=== PATIENT | male | born 1935 | race Caucasian/White ===

== ENCOUNTER → 2017-04-21 | Outpatient (CLI) | payer MEDICARE ==
[~2017-04-21] MED LIST: ASPI81TA5 PO; CARV3.12 PO; DOCU2.5C PO; GABA300C5 PO; GLUCOCIL PO; LOSA50TA PO; OMEG100010 PO; OXYC1TAB36 PO; REDCAP2 PO; SYMB160A INH
--- NOTE | 2017-04-21 11:45 | RADRPT ---
EXAM DATE/TIME: 04/21/2017 11:36 [facility] COMPARISON: No previous studies available for comparison. INDICATIONS : Pre op lobectomy. Evaluate for pneumothorax, pneumonia, or communicable diseases. MEDICAL HISTORY : Diabetes mellitus type II. Chronic obstructive pulmonary disease. SURGICAL HISTORY : Triple a repair, Left knee replacement. ENCOUNTER: Initial ACUITY: 1 day PAIN SCORE: 0/10 LOCATION: Bilateral chest FINDINGS: Minimal diffuse interstitial prominence. Minimal linear parenchymal opacities in the left lung base c onsistent with atelectasis. Cardiomediastinal contours are within normal limits. Bony thorax is intac t. CONCLUSION: 1. Minimal left lung base atelectasis. 2. Otherwise, no acute cardiopulmonary disease. Oh Luna MD on April 21, 2017 at 11:42 Board Certified Radiologist. This report was verified electronically.
[2017-04-21 12:20] LABS: HEMATOCRIT 43.6 % (39.0-51.0); MEAN CELL VOLUME 92.7 FL (80.0-100.0); MEAN CORPUSCULAR HGB CONC 33.4 % (32.0-36.0); PLATELET COUNT 155 TH/MM3 (150-450); RED CELL DISTRIBUTION WIDTH 15.7 % (11.6-17.2); REVIEW FLAG FINAL; WHITE BLOOD COUNT 5.4 TH/MM3 (4.0-11.0)
[2017-04-21 12:24] LABS: BLOOD, URINE NEG (NEG); GLUCOSE,URINE NEG (NEG); KETONE, URINE NEG (NEG); NITRITE,URINE NEG (NEG); URINE COLOR YELLOW (YELLW/STRAW)
[2017-04-21 12:25] LABS: COMMENT (UR) CULT NOT INDICATED; CULTURE IF INDICATED CULT NOT INDICATED
[2017-04-21 12:33] LABS: APTT (PATIENT) 24.5 SEC (24.3-30.1)
[2017-04-21 12:47] LABS: BICARBONATE 28.8 MEQ/L (21.0-32.0); POTASSIUM 4.9 MEQ/L (3.5-5.1)
--- NOTE | 2017-04-22 14:40 | EKG ---
Date Performed: 04/21/2017 Time Performed: 11:01:26 PTAGE: 82 years EKG: Sinus rhythm WITH SINUS ARRHYTHMIA NORMAL ECG NO PREVIOUS TRACING DOCTOR: James Green Interpretating Date/Time 04/22/2017 14:38:59
== END ==
LOC: CPRE 10:41
PROVIDERS: ATTEND Thoracic Surgery (Cardiothoracic Vascular Surgery)
DX: Z01.810 Encounter for preprocedural cardiovascular examination (principal); Z01.811 Encounter for preprocedural respiratory examination; Z01.812 Encounter for preprocedural laboratory examination; R91.1 Solitary pulmonary nodule
CPT/HCPCS: 36415; 71020; 80048; 81001; 85027; 85610; 85730; 93005

== ENCOUNTER 2017-04-28 08:30 | Inpatient (IN) | payer MEDICARE ==
[~2017-04-28] VITALS: Ht 175.3 cm; Wt 79.2 kg
[~2017-04-28 08:30] MED LIST changes: -DOCU2.5C PO; -GLUCOCIL PO; -OXYC1TAB36 PO
[2017-05-05] MEDS ORDERED: METOPROLOL TARTRATE 25 MG TAB PO PRN (06:00)
[2017-05-05] MEDS ORDERED: CHLORHEXIDINE GLUCONATE 2 % 1 PACK (2 CLOTHS) TOPICAL PRN (06:00)
[2017-05-05] MEDS ORDERED: INSULIN HUMAN REGULAR 1,000 UNITS/10 ML VIAL SQ PRN (06:00)
[2017-05-05] MEDS ORDERED: SODIUM CHLORID 0.9% 500 ML IV PRN (06:00)
[2017-05-05] MEDS ORDERED: LACTATED RINGER'S 1000 ML IV PRN (06:00)
[2017-05-05] MEDS ORDERED: POVIDONE IODINE 5% (ANTISEPSIS KIT) 4 APPLICATIONS EACH NARE PRN (06:00)
[2017-05-05] MEDS ORDERED: BUPIVACAINE LIPOSO PF 1.3% INJ 20 ML, DEXAMETHASONE INJ 4 MG, MORPHINE INJ 8 MG in SODI... IRRIGATION ONE (07:15)
[2017-05-05] MEDS ORDERED: ceFAZolin 2 GM PREMIX 50 ML ONE (07:31)
[2017-05-05] MEDS ORDERED: ROCURONIUM INJ 50 MG/5 ML SYRINGE IV PUSH ONE ×2 (11:40→11:53)
[2017-05-05] MEDS ORDERED: LIDOCAINE HCL 1% PF 5 ML AMPULE OTHER ONE (11:53)
[2017-05-05] MEDS ORDERED: ePHEDrine/NS 25 MG/5 ML SYR IV ONE (11:53)
[2017-05-05] MEDS ORDERED: PHENYLEPHRINE HCL 10 MG/ML VIAL IV ONE (11:53)
[2017-05-05] MEDS ORDERED: LACTATED RINGER'S 1000 ML INJ 2,000 ML IV ONE (11:53)
[2017-05-05] MEDS ORDERED: ONDANSETRON HCL 4 MG/2 ML VIAL IV PUSH ONE (11:53)
[2017-05-05] MEDS ORDERED: GLYCOPYRROLATE 1 MG/5 ML SYRINGE IV PUSH ONE (11:53)
[2017-05-05] MEDS ORDERED: LABETALOL HCL 100 MG/20 ML VIAL IV ONE (11:53)
[2017-05-05] MEDS ORDERED: NEOSTIGMINE 3 MG/3 ML SYR IV ONE (11:53)
[2017-05-05] MEDS ORDERED: PROPOFOL 200 MG/20 ML AMP IV ONE (11:53)
[2017-05-05] MEDS ORDERED: PHENYLEPH/NS 1000 MCG/10 ML SYR IV ONE (11:53)
[2017-05-05] MEDS ORDERED: NORMOSOL R INJ 1,000 ML IV ONE (11:53)
--- NOTE | 2017-05-05 12:27 | PD.OP ---
cc: Canelo Contreras MD Operative Report Date of Surgery: May 05, 2017 Preoperative Diagnosis: Postoperative Diagnosis: Procedure: 1. Left Posterolateral Muscle Sparing Thoracotomy 2. Left Upper Lobectomy 3. Mediastinal Lymph Node Dissection 4. Intercostal Nerve Block Surgeon: Canelo Contreras Lawyer Criminal(s): Peyman Lockett Operation and Findings: PREOPERATIVE DIAGNOSIS 1. Left Upper Lobe Lung Mass 2. COPD 3. CAD POSTOPERATIVE DIAGNOSIS 1. Left Upper Lobe Lung Cancer 2. COPD 3. CAD PROCEDURES 1. Left Posterolateral Muscle Sparing Thoracotomy 2. Left Upper Lobectomy 3. Mediastinal Lymph Node Dissection 4. Intercostal Nerve Block SURGEON Canelo Contreras MD SAND BOBBER YAMILE Camara ANESTHESIA General double-lumen endotracheal. CAR SEAT UPHOLSTERER YULI Waddell MD DRAINS [address] COUNTS Needle, sponge, and instrument counts were correct. COMPLICATIONS None. INDICATION FOR PROCEDURE The patient is a 82 yo gentleman with HARMEET PET positive mass, presenting for surgical resection of above pathology. DESCRIPTION OF PROCEDURE The patient was brought to the operating suite and placed in supine position. Following satisfactory induction of general double-lumen endotracheal anesthesia , the patient was placed in the right lateral decubitus position. The left chest and surrounding area was then prepped and draped in the usual sterile fashion. A standard muscle-sparing posterolateral thoracotomy was performed and the serratus anterior muscle spared. The pleural space was entered. Exploration of the chest revealed a linear mass in the left upper lobe. Wedge resection of the mass was performed and the specimen sent for histological analysis. Frozen section was consistent with NSCLC likely Adenocarcinoma. Plans were made to proceed with a formal lobectomy. The inferior pulmonary ligament was divided. The pulmonary arterial supply to the upper lobe was identified, dissected free and divided as was the pulmonary venous supply. The bronchus was then dissected free, clamped and the remaining lung was insufflated without any difficulty. Lymph node dissections of level 5, 6, 7, 10 and 11 were performed along with the course of this removal. Some of these were retained with the specimen. Specimen was removed from the chest. Of note, the lung was very friable. The staple line and the hilum was sprayed with Evicel. At this point the closure was undertaken. A 32-Surinamese chest tube was placed. Intercostal nerve block was performed at the level of the incision and 3 rib spaces above and below using Exparel with Decadron solution. The pericostal space was approximated with interrupted #1 Vicryl sutures in a pericostal fashion. The serratus fascia and Latissimus dorsi were closed with running 0-Vicryl and the remaining wounds closed with 3-0, and 4-0 Monocryl. The patient tolerated the procedure well and postoperatively went to the PACU in stable condition. Canelo Contreras MD May 05, 2017 12:27
[2017-05-05] MEDS ORDERED: SODIUM CHLORIDE 0.9% FLUSH 5 ML FLUSH IV FLUSH PRN (12:30)
[2017-05-05] MEDS ORDERED: ONDANSETRON HCL 4 MG/2 ML VIAL IV PUSH PRN (12:30)
[2017-05-05] MEDS ORDERED: Post-op Orders (for Pharmacy) MISC OTHER ONE (12:30)
[2017-05-05] MEDS ORDERED: RESP: ALBUTEROL 2.5 MG/3 ML NEB (PRN) NEB (12:30)
[2017-05-05] MEDS ORDERED: *morphine SULFATE 8 MG/ML PERIprocedure ONLY ONE ×2 (13:28→13:51)
--- NOTE | 2017-05-05 13:52 | RADRPT ---
EXAM DATE/TIME: 05/05/2017 13:04 [facility] COMPARISON: CHEST PA & LAT, April 21, 2017, 11:36. INDICATIONS : Status post Thoracotomy. MEDICAL HISTORY : None. SURGICAL HISTORY : None. ENCOUNTER: Initial ACUITY: 1 day PAIN SCORE: Non-responsive. LOCATION: Bilateral chest FINDINGS: There is a left-sided chest tube in place in good position. No definite pneumothorax. Mild atelectasi s in the left lung base. Otherwise the lungs are grossly clear. The heart size is mildly enlarged but stable compared to the prior exam. No pleural effusions. The bony structures are grossly intact. The re is some mild subcutaneous emphysema along the left chest wall. CONCLUSION: 1. Left chest tube in place. 2. No definite pneumothorax. Cristi Durán MD on May 05, 2017 at 13:50 Board Certified Radiologist. This report was verified electronically.
[2017-05-05] MEDS: RESP: ALBUTEROL 2.5 MG/3 ML NEB (SCH) NEB (16:00)
[2017-05-05] MEDS: ACETAMINOPHEN 1000 MG/100 ML 100 ML IV SCH ×2 (16:00→20:59)
[2017-05-05] MEDS: KETOROLAC TROMETHAMINE 30 MG/ML (IVP) VIAL IV PUSH SCH ×2 (16:00→21:00)
[2017-05-05] MEDS ORDERED: *ENALAPRILAT 1.25 MG/ML VIAL PERIprocedural Use ONLY ONE (17:18)
[2017-05-05 18:54] VITALS: BP 147/72; PULSE 83; RESP 18; TEMP 98.4; O2SAT 94
[2017-05-05 19:00] VITALS: BP 133/64; PULSE 80; PULSE 84; TEMP 98.5; O2SAT 96
[2017-05-05 20:00] VITALS: PULSE 80
[2017-05-05] MEDS ORDERED: diphenhydrAMINE HCL 25 MG CAP PO ONE (20:00)
[2017-05-05] MEDS: SODIUM CHLORIDE 0.9% FLUSH 5 ML FLUSH IV FLUSH SCH (20:59)
[2017-05-05] MEDS: PANTOPRAZOLE SOD 40 MG DELAYED RELEASE TAB PO SCH (20:59)
[2017-05-05] MEDS: DOCUSATE CALCIUM 240 MG CAP PO SCH (20:59)
[2017-05-05] MEDS: CARVEDILOL 3.125 MG TAB PO SCH (20:59)
[2017-05-05 21:00] VITALS: PULSE 78
[2017-05-05] MEDS: BUDESONIDE-FORMOTEROL 160/4.5 MCG INHALER INH SCH (21:00)
[2017-05-05 22:00] VITALS: PULSE 74
[2017-05-05 23:00] VITALS: BP 144/65; PULSE 75; PULSE 84; TEMP 97.6; O2SAT 99
[2017-05-06] VITALS (27 sets, daily range): BP systolic 148–186; BP diastolic 63–84; PULSE 62–82; RESP 20; TEMP 97.8–98.6; O2SAT 96–98
[2017-05-06] MEDS: RESP: ALBUTEROL 2.5 MG/3 ML NEB (SCH) NEB ×5 (00:11→20:31)
[2017-05-06] MEDS: ACETAMINOPHEN 1000 MG/100 ML 100 ML IV SCH ×2 (03:52→09:04)
[2017-05-06] MEDS: KETOROLAC TROMETHAMINE 30 MG/ML (IVP) VIAL IV PUSH SCH ×2 (03:52→09:04)
[2017-05-06 05:17] LABS: AUTOMATED NEUTROPHIL # 7.8 TH/MM3 (1.8-7.7); BASOPHIL % 0.3 % (0.0-2.0); EOSINOPHIL # 0.1 TH/MM3 (0-0.4); EOSINOPHIL % 0.6 % (0.0-4.0); HEMATOCRIT 37.9 % (39.0-51.0); HEMO FLAGS DIFF FINAL; LYMPH % 13.7 % (9.0-44.0); LYMPHOCYTE # 1.3 TH/MM3 (1.0-4.8); MEAN CELL VOLUME 92.1 FL (80.0-100.0); MEAN CORPUSCULAR HEMOGLOBIN 31.1 PG (27.0-34.0); MEAN CORPUSCULAR HGB CONC 33.8 % (32.0-36.0); MONO % 6.3 % (0.0-8.0); NEUT % 79.1 % (16.0-70.0); PLATELET COUNT 121 TH/MM3 (150-450); RED BLOOD COUNT 4.12 MIL/MM3 (4.50-5.90); RED CELL DISTRIBUTION WIDTH 15.3 % (11.6-17.2); WHITE BLOOD COUNT 9.8 TH/MM3 (4.0-11.0)
[2017-05-06 05:37] LABS: BICARBONATE 22.5 MEQ/L (21.0-32.0); POTASSIUM 3.9 MEQ/L (3.5-5.1)
[2017-05-06] MEDS: SODIUM CHLORIDE 0.9% FLUSH 5 ML FLUSH IV FLUSH SCH ×2 (09:00→20:35)
[2017-05-06] MEDS ORDERED: FATTY ACIDS PO SCH (09:00)
[2017-05-06] MEDS ORDERED: OMEGA PO SCH (09:00)
[2017-05-06] MEDS: GABAPENTIN 300 MG CAP PO SCH (09:04)
[2017-05-06] MEDS: BUDESONIDE-FORMOTEROL 160/4.5 MCG INHALER INH SCH ×2 (09:04→20:35)
[2017-05-06] MEDS: LOSARTAN 50 MG TAB PO SCH (09:05)
[2017-05-06] MEDS: ASPIRIN EC 81 MG TABEC PO SCH (09:05)
[2017-05-06] MEDS: CARVEDILOL 3.125 MG TAB PO SCH ×2 (09:05→20:34)
[2017-05-06] MEDS: ACETAMINOPHEN/HYDROcodone 325 MG/5 MG TAB PO PRN ×3 (15:59→20:34)
--- NOTE | 2017-05-06 17:22 | PD.CAR.PN ---
CVT Progress Note Subjective/Hospital Course: 82/ male hx of left upper lobe lung cancer / 10x8 spiculated mass / elective surgery PMH: COPD, DM, HTN, CAD/ stent surgery : Left Posterolateral Muscle Sparing Thoracotomy, Left Upper Lobectomy , Mediastinal Lymph Node Dissection 05/05 05/06 on nasal cannula await path pulm toileting OOB/ ambulate chest tube + air leak 140cc/ 12 hr s Objective: GENERAL: SKIN: Warm and dry. dressing left upper chest wall HEAD: Normocephalic. EYES: No scleral icterus. No injection or drainage. NECK: Supple, trachea midline. No JVD or lymphadenopathy. CARDIOVASCULAR: Regular rate and rhythm without murmurs, gallops, or rubs. RESPIRATORY: Breath sounds equal bilaterally. No accessory muscle use. chest tube to water seal/ + 3 air leak GASTROINTESTINAL: Abdomen soft, non-tender, nondistended. MUSCULOSKELETAL: No cyanosis, or edema. BACK: Nontender without obvious deformity. No CVA tenderness. Vital Signs Date Time Temp Pulse Resp B/P (MAP) Pulse Ox O2 Delivery O2 Flow Rate FiO2 05/06/17 16:00 78 05/06/17 15:49 98.6 68 20 148/68 (94) 98 05/06/17 15:00 64 05/06/17 14:00 76 05/06/17 13:00 72 05/06/17 12:00 70 05/06/17 11:30 98.5 68 20 158/78 (104) 98 05/06/17 11:00 68 05/06/17 10:00 72 05/06/17 09:00 68 05/06/17 08:30 162/82 (108) 05/06/17 08:00 74 05/06/17 08:00 98.3 74 179/84 (115) 96 05/06/17 07:00 65 05/06/17 06:03 68 05/06/17 05:53 64 05/06/17 04:24 66 05/06/17 03:00 82 05/06/17 03:00 97.8 70 153/63 (93) 96 05/06/17 02:01 70 05/06/17 01:00 68 05/06/17 00:00 68 05/05/17 23:00 97.6 75 144/65 (91) 99 05/05/17 23:00 84 05/05/17 22:00 74 05/05/17 21:00 78 05/05/17 20:00 80 05/05/17 19:00 84 05/05/17 19:00 98.5 80 133/64 (87) 96 05/05/17 18:54 98.4 83 18 147/72 (97) 94 05/05/17 18:00 97.8 80 16 128/73 (91) 96 Nasal Cannula 3 05/05/17 17:30 80 16 175/79 (111) 96 Nasal Cannula 3 Result Diagram: 05/06/1745005/06/17450 Telemetry: NSR (1) COPD (chronic obstructive pulmonary disease) Plan: nebs, ezpap wean 02 (2) Coronary artery disease Plan: SA, statin , home meds (3) Hypertension Plan: controlled (4) Diabetes mellitus Plan: insulin sliding scale, diabetic diet (5) Primary cancer of left upper lobe of lung (6) Left Posterolateral Muscle Sparing Thoracotomy, Left Upper Lobectomy Plan: pain control, await path f/u CXR in am + air leak Jewell Jennings May 06, 2017 17:22
--- NOTE | 2017-05-06 17:25 | HHI.FF ---
Face to Face Verification Diagnosis: (1) COPD (chronic obstructive pulmonary disease) (2) Coronary artery disease (3) Diabetes mellitus (4) Hypertension (5) Primary cancer of left upper lobe of lung (6) Left Posterolateral Muscle Sparing Thoracotomy, Left Upper Lobectomy Home Health Nursing Order: Signs/symptoms of disease process Medication education-adverse effect Wound care and dressing changes Nursing assessment with vital signs Instructions: Thoracic Surgery patients Mandatory frequency Assess and evaluation, 2-3 x a week for one week Initial visit 1. Review post chest surgery instructions chest precautions, Activity, Elastic hose, Incision care, Driving, Incentive spirometry, Smoking, [place] , Work and other) 2. Need Betadine to paint incision 3. Medication reconciliation 4. Importance of follow up care/ check on appointments 5. Make calendar record temperature daily 6. When to call Home nurse, review instructions, phone list 7. Incentive Spirometry, demonstration Visit 1- Begin discharge instruction for patient family and/ or caregiver using teach back method- 1. Signs and symptoms of infection 2. Disease characteristics 3. Medicines and side effects 4. Foods and nutrition/ appetite 5. Infection control/ hand washing/ hygiene Visit 2- Continue teaching 1. Discharge instructions- include additional information on smoking cessation , Visit 3- Continue teaching- 1. Cough and deep breathing, incision monitoring. Incentive spirometry Q1 hr x 10, while awake, also use acapella device hourly whole awake Sternal Breast Bone Precautions: NO pushing or pulling, ( pt must use sternal pillow to support chest with all activities and with coughing ( takes up to 3 months breast bone to heal ) All females to wear sternal bra , launder as needed Daily incision care: ok to shower daily ( 48hrs after chest tube removed) , no tub bath. Wash all incisions with liquid dial soap, clean wash cloth to each site, rinse and pat dry. Observe for any signs of infection, such as drainage which is dark yellow, woods, green or foul smelling. Immediately report to the surgeon any drainage from the chest incision, or legs, and for any abnormal drainage from the chest tube sites. Notify surgeon if any temp >101.5 degrees F. When specialty dressing removed/ or if you do not have one, continue to shower daily as above, then rinse and pat incision dry and paint with betadine daily x 5 days. Allow steri strips to fall off if you have any. Avoid lotions , creams, salves, oils, etc. for the first month F/U appointment: as per [place] instructions: PCP in 2 weeks, CV surgeon 2 weeks, welding machine operator thermit 3-4 weeks For any questions regarding incisions/ dressing / meds / post op care or above Symptoms, Thursday 8am-5pm Heart & Vascular Surgery Office ( Dr. Contreras & Dr. Torrez), After Hours / Nights (5pm -8am) Weekends and Holidays Please call [facility] ([facility]) Charge Nurse I have seen patient Fadia Andrade on 05/06/17. My clinical findings support the need for the requested home health care services because: Patient has SOB Deconditioned w/ increased weakness I certify that my clinical findings support that this patient is homebound because: Post-op weakness Jewell Jennings May 06, 2017 17:25
[2017-05-06] MEDS: DOCUSATE CALCIUM 240 MG CAP PO SCH (20:34)
[2017-05-06] MEDS: LOSARTAN 25 MG TAB PO SCH (20:34)
[2017-05-06] MEDS: PANTOPRAZOLE SOD 40 MG DELAYED RELEASE TAB PO SCH (20:34)
[2017-05-07] VITALS (28 sets, daily range): BP systolic 144–184; BP diastolic 72–87; PULSE 67–82; RESP 14–20; TEMP 97.7–98.8; O2SAT 94–98
[2017-05-07] MEDS: RESP: ALBUTEROL 2.5 MG/3 ML NEB (SCH) NEB ×4 (02:41→20:39)
[2017-05-07] MEDS: ACETAMINOPHEN/HYDROcodone 325 MG/5 MG TAB PO PRN ×5 (04:26→21:33)
--- NOTE | 2017-05-07 05:10 | RADRPT ---
EXAM DATE/TIME: 05/07/2017 04:14 [facility] COMPARISON: CHEST SINGLE AP, May 05, 2017, 13:04. INDICATIONS : Shortness of breath, possible pulmonary disease. MEDICAL HISTORY : None. SURGICAL HISTORY : Thoracotomy ENCOUNTER: Subsequent ACUITY: 2 days PAIN SCORE: 5/10 LOCATION: Left chest FINDINGS: The cardiac silhouette is enlarged in transverse diameter. A left chest tube is in place. There is no evidence of pneumothorax. There is subsegmental atelectasis in the left base. There is subcutaneous emphysema along the left lateral chest wall. CONCLUSION: 1. There is no evidence of pneumothorax. Hussain Sifuentes MD on May 07, 2017 at 5:08 Board Certified Radiologist. This report was verified electronically.
[2017-05-07] MEDS: GABAPENTIN 300 MG CAP PO SCH (08:49)
[2017-05-07] MEDS: CARVEDILOL 3.125 MG TAB PO SCH ×2 (08:50→21:33)
[2017-05-07] MEDS: ASPIRIN EC 81 MG TABEC PO SCH (08:50)
[2017-05-07] MEDS: LOSARTAN 50 MG TAB PO SCH (08:50)
[2017-05-07] MEDS: SODIUM CHLORIDE 0.9% FLUSH 5 ML FLUSH IV FLUSH SCH ×2 (08:51→21:00)
[2017-05-07] MEDS: BUDESONIDE-FORMOTEROL 160/4.5 MCG INHALER INH SCH ×2 (08:51→21:34)
[2017-05-07] MEDS: MAGNESIUM HYDROXIDE SUSP 30 ML CUP PO PRN (09:01)
--- NOTE | 2017-05-07 13:32 | PD.CAR.PN ---
CVT Progress Note Subjective/Hospital Course: 82/ male hx of left upper lobe lung cancer / 10x8 spiculated mass / elective surgery PMH: COPD, DM, HTN, CAD/ stent surgery : Left Posterolateral Muscle Sparing Thoracotomy, Left Upper Lobectomy , Mediastinal Lymph Node Dissection 05/05 05/06 on nasal cannula await path pulm toileting OOB/ ambulate chest tube + air leak 140cc/ 12 hr s. 05/07 still has intermittent air leak chest tube drained 350cc/ sero sang drainage pain controlled, path pending Objective: GENERAL: SKIN: Warm and dry. incision intact left posterolateral chest wall HEAD: Normocephalic. EYES: No scleral icterus. No injection or drainage. NECK: Supple, trachea midline. No JVD or lymphadenopathy. CARDIOVASCULAR: Regular rate and rhythm without murmurs, gallops, or rubs. RESPIRATORY: Breath sounds equal bilaterally. No accessory muscle use. chest tube in place + intermittent air leak GASTROINTESTINAL: Abdomen soft, non-tender, nondistended. MUSCULOSKELETAL: No cyanosis, or edema. BACK: Nontender without obvious deformity. No CVA tenderness. Vital Signs Date Time Temp Pulse Resp B/P (MAP) Pulse Ox O2 Delivery O2 Flow Rate FiO2 05/07/17 12:00 72 05/07/17 11:00 98.6 79 20 168/73 (104) 95 05/07/17 11:00 77 05/07/17 10:00 82 05/07/17 09:00 74 05/07/17 08:00 73 05/07/17 07:00 73 19 184/84 (117) 95 05/07/17 07:00 78 05/07/17 06:09 74 05/07/17 05:00 70 05/07/17 04:03 71 05/07/17 03:57 75 05/07/17 03:44 98.3 74 165/77 (106) 94 05/07/17 02:25 67 05/07/17 01:00 70 05/07/17 00:19 97.7 76 155/77 (103) 98 05/07/17 00:00 72 05/06/17 23:00 71 05/06/17 22:00 72 05/06/17 21:00 76 05/06/17 20:00 62 05/06/17 19:00 98.6 65 186/83 (117) 96 05/06/17 19:00 72 05/06/17 18:00 78 05/06/17 17:00 76 05/06/17 16:59 20 05/06/17 16:00 78 05/06/17 15:49 98.6 68 20 148/68 (94) 98 05/06/17 15:00 64 05/06/17 14:00 76 Result Diagram: 05/06/17 04505/06/17450 Telemetry: NSR (1) COPD (chronic obstructive pulmonary disease) Plan: nebs, ezpap on room air (2) Coronary artery disease Plan: SA, statin , home meds (3) Hypertension Plan: controlled (4) Diabetes mellitus Plan: insulin sliding scale, diabetic diet (5) Primary cancer of left upper lobe of lung (6) Left Posterolateral Muscle Sparing Thoracotomy, Left Upper Lobectomy Plan: pain control, await path f/u CXR in am + air leak leave chest tube in Jewell Jennings May 07, 2017 13:32
[2017-05-07] MEDS: DOCUSATE CALCIUM 240 MG CAP PO SCH (21:33)
[2017-05-07] MEDS: LOSARTAN 25 MG TAB PO SCH (21:33)
[2017-05-07] MEDS: PANTOPRAZOLE SOD 40 MG DELAYED RELEASE TAB PO SCH (21:33)
[2017-05-08] VITALS (26 sets, daily range): BP systolic 134–167; BP diastolic 68–79; PULSE 68–90; RESP 14–20; TEMP 97.7–98.5; O2SAT 94–96
[2017-05-08] MEDS: RESP: ALBUTEROL 2.5 MG/3 ML NEB (SCH) NEB ×4 (03:06→20:24)
[2017-05-08] MEDS: ACETAMINOPHEN/HYDROcodone 325 MG/5 MG TAB PO PRN ×6 (03:45→19:50)
[2017-05-08] MEDS: ASPIRIN EC 81 MG TABEC PO SCH (09:00)
[2017-05-08] MEDS: SODIUM CHLORIDE 0.9% FLUSH 5 ML FLUSH IV FLUSH SCH ×2 (09:00→21:00)
[2017-05-08] MEDS: LOSARTAN 50 MG TAB PO SCH (09:00)
[2017-05-08] MEDS: CARVEDILOL 3.125 MG TAB PO SCH ×2 (09:00→20:59)
[2017-05-08] MEDS: GABAPENTIN 300 MG CAP PO SCH (09:00)
[2017-05-08] MEDS: BUDESONIDE-FORMOTEROL 160/4.5 MCG INHALER INH SCH ×2 (09:08→21:00)
[2017-05-08] MEDS ORDERED: INFLUENZA VIRUS VACCINE (QUADRIVALENT) 0.5 ML SYR IM ONE (10:00)
--- NOTE | 2017-05-08 15:56 | PD.CAR.PN ---
CVT Progress Note Subjective/Hospital Course: 82/ male hx of left upper lobe lung cancer / 10x8 spiculated mass / elective surgery PMH: COPD, DM, HTN, CAD/ stent surgery : Left Posterolateral Muscle Sparing Thoracotomy, Left Upper Lobectomy , Mediastinal Lymph Node Dissection 05/05 05/06 on nasal cannula await path pulm toileting OOB/ ambulate chest tube + air leak 140cc/ 12 hr s. 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 incision intact left postero lateral chest wall HEAD: Normocephalic. EYES: No scleral icterus. No injection or drainage. NECK: Supple, trachea midline. No JVD or lymphadenopathy. CARDIOVASCULAR: Regular rate and rhythm without murmurs, gallops, or rubs. RESPIRATORY: Breath sounds equal bilaterally. No accessory muscle use. chest tube to water seal / drained 120cc ( in correct in computer) GASTROINTESTINAL: Abdomen soft, non-tender, nondistended. MUSCULOSKELETAL: No cyanosis, or edema. BACK: Nontender without obvious deformity. No CVA tenderness. Vital Signs Date Time Temp Pulse Resp B/P (MAP) Pulse Ox O2 Delivery O2 Flow Rate FiO2 05/08/17 15:00 81 05/08/17 15:00 98.5 78 19 139/77 (97) 96 05/08/17 14:35 18 05/08/17 14:01 84 05/08/17 13:00 84 05/08/17 12:00 76 05/08/17 11:00 80 05/08/17 11:00 77 19 158/78 (104) 94 05/08/17 10:00 80 05/08/17 09:00 77 05/08/17 08:00 81 05/08/17 07:00 75 05/08/17 07:00 98.4 74 20 150/68 (95) 94 05/08/17 06:00 72 05/08/17 05:00 72 05/08/17 04:00 72 05/08/17 03:44 98.5 72 16 167/79 (108) 94 05/08/17 03:00 70 05/08/17 02:00 74 05/08/17 01:00 78 05/08/17 00:00 78 05/07/17 23:10 82 14 144/72 (96) 94 05/07/17 23:00 78 05/07/17 22:00 78 05/07/17 21:00 76 05/07/17 20:00 74 05/07/17 19:45 98.7 78 16 184/87 (119) 96 05/07/17 19:00 78 05/07/17 18:00 78 05/07/17 17:00 72 05/07/17 16:00 80 Result Diagram: 05/06/17 0451 05/06/17 0451 (1) COPD (chronic obstructive pulmonary disease) Plan: nebs, ezpap on room air (2) Coronary artery disease Plan: SA, statin , home meds (3) Hypertension Plan: controlled (4) Diabetes mellitus Plan: insulin sliding scale, diabetic diet (5) Primary cancer of left upper lobe of lung (6) Left Posterolateral Muscle Sparing Thoracotomy, Left Upper Lobectomy Plan: pain control, path discussed with pt + air leak leave chest tube in Jewell Jennings May 08, 2017 15:55
[2017-05-08] MEDS: PANTOPRAZOLE SOD 40 MG DELAYED RELEASE TAB PO SCH (20:59)
[2017-05-08] MEDS: LOSARTAN 25 MG TAB PO SCH (21:00)
[2017-05-08] MEDS: DOCUSATE CALCIUM 240 MG CAP PO SCH (21:00)
[2017-05-09] VITALS (25 sets, daily range): BP systolic 115–172; BP diastolic 65–83; PULSE 71–86; RESP 16–18; TEMP 97.6–99; O2SAT 95–97
[2017-05-09] MEDS: RESP: ALBUTEROL 2.5 MG/3 ML NEB (SCH) NEB ×2 (03:54→08:16)
[2017-05-09] MEDS: ACETAMINOPHEN/HYDROcodone 325 MG/5 MG TAB PO PRN ×6 (04:15→21:23)
[2017-05-09] MEDS: GABAPENTIN 300 MG CAP PO SCH (08:07)
[2017-05-09] MEDS: BUDESONIDE-FORMOTEROL 160/4.5 MCG INHALER INH SCH ×2 (08:07→21:24)
[2017-05-09] MEDS: LOSARTAN 50 MG TAB PO SCH (08:08)
[2017-05-09] MEDS: CARVEDILOL 3.125 MG TAB PO SCH ×2 (08:08→21:23)
[2017-05-09] MEDS: ASPIRIN EC 81 MG TABEC PO SCH (08:08)
[2017-05-09] MEDS: SODIUM CHLORIDE 0.9% FLUSH 5 ML FLUSH IV FLUSH SCH ×2 (08:08→21:00)
--- NOTE | 2017-05-09 09:33 | PD.CAR.PN ---
CVT Progress Note Subjective/Hospital Course: 82/ male hx of left upper lobe lung cancer / 10x8 spiculated mass / elective surgery PMH: COPD, DM, HTN, CAD/ stent surgery : Left Posterolateral Muscle Sparing Thoracotomy, Left Upper Lobectomy , Mediastinal Lymph Node Dissection 05/05 05/06 on nasal cannula await path pulm toileting OOB/ ambulate chest tube + air leak 140cc/ 12 hr s. 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 pT1a pNO 05/09 Doing well Small air-leak with valsalva Maintain CT and re-evaluate for removal in am Objective: Vital Signs Date Time Temp Pulse Resp B/P (MAP) Pulse Ox O2 Delivery O2 Flow Rate FiO2 05/09/17 08:00 74 05/09/17 07:00 99.0 74 18 141/68 (92) 95 05/09/17 07:00 76 05/09/17 06:00 74 05/09/17 05:30 16 05/09/17 05:00 72 05/09/17 04:00 82 05/09/17 03:15 97.6 83 16 172/83 (112) 97 05/09/17 03:00 76 05/09/17 02:00 76 05/09/17 01:00 78 05/09/17 00:00 80 05/08/17 23:00 98.5 81 14 136/77 (96) 95 05/08/17 23:00 74 05/08/17 22:00 68 05/08/17 21:00 70 05/08/17 20:00 72 05/08/17 19:30 97.7 71 16 134/68 (90) 95 05/08/17 19:00 68 05/08/17 18:02 79 05/08/17 17:00 90 05/08/17 16:00 80 05/08/17 15:00 81 05/08/17 15:00 98.5 78 19 139/77 (97) 96 05/08/17 14:01 84 05/08/17 13:00 84 05/08/17 12:00 76 05/08/17 11:00 80 05/08/17 11:00 77 19 158/78 (104) 94 05/08/17 10:00 80 Result Diagram: 05/06/17 0451 05/06/17 045 (1) COPD (chronic obstructive pulmonary disease) Plan: nebs, ezpap on room air (2) Coronary artery disease Plan: SA, statin , home meds (3) Hypertension Plan: controlled (4) Diabetes mellitus Plan: insulin sliding scale, diabetic diet (5) Primary cancer of left upper lobe of lung (6) Left Posterolateral Muscle Sparing Thoracotomy, Left Upper Lobectomy Plan: pain control, path discussed with pt + air leak leave chest tube in Canelo Contreras MD May 09, 2017 09:33
[2017-05-09] MEDS: LOSARTAN 25 MG TAB PO SCH (21:23)
[2017-05-09] MEDS: DOCUSATE CALCIUM 240 MG CAP PO SCH (21:23)
[2017-05-09] MEDS: PANTOPRAZOLE SOD 40 MG DELAYED RELEASE TAB PO SCH (21:23)
[2017-05-10] VITALS (24 sets, daily range): BP systolic 125–160; BP diastolic 68–81; PULSE 68–92; RESP 18; TEMP 97.5–98.3; O2SAT 95–97
[2017-05-10] MEDS: ACETAMINOPHEN/HYDROcodone 325 MG/5 MG TAB PO PRN ×8 (00:36→23:18)
[2017-05-10] MEDS: ACETAMINOPHEN 325 MG TAB PO PRN ×2 (00:37→04:34)
[2017-05-10] MEDS: CARVEDILOL 3.125 MG TAB PO SCH ×2 (07:44→20:31)
[2017-05-10] MEDS: GABAPENTIN 300 MG CAP PO SCH (07:44)
[2017-05-10] MEDS: LOSARTAN 50 MG TAB PO SCH (07:44)
[2017-05-10] MEDS: ASPIRIN EC 81 MG TABEC PO SCH (07:44)
[2017-05-10] MEDS: SODIUM CHLORIDE 0.9% FLUSH 5 ML FLUSH IV FLUSH SCH ×2 (07:45→20:31)
[2017-05-10] MEDS: BUDESONIDE-FORMOTEROL 160/4.5 MCG INHALER INH SCH ×2 (09:06→20:32)
--- NOTE | 2017-05-10 10:11 | PD.CAR.PN ---
CVT Progress Note CVT: POD #: 5 Subjective/Hospital Course: 82/ male hx of left upper lobe lung cancer / 10x8 spiculated mass / elective surgery PMH: COPD, DM, HTN, CAD/ stent surgery : Left Posterolateral Muscle Sparing Thoracotomy, Left Upper Lobectomy , Mediastinal Lymph Node Dissection 05/05 05/06 on nasal cannula await path pulm toileting OOB/ ambulate chest tube + air leak 140cc/ 12 hr s. 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 pT1a pNO 05/09 Doing well Small air-leak with valsalva Maintain CT and re-evaluate for removal in am 05/10 c/o incisional pain last night small air leak from chest tube Objective: Vital Signs Date Time Temp Pulse Resp B/P (MAP) Pulse Ox O2 Delivery O2 Flow Rate FiO2 05/10/17 09:00 69 05/10/17 08:44 18 05/10/17 08:00 72 05/10/17 07:00 98.3 73 18 158/81 (106) 96 05/10/17 07:00 82 05/10/17 06:00 72 05/10/17 05:00 72 05/10/17 04:00 68 05/10/17 03:00 76 05/10/17 03:00 97.5 81 18 147/75 (99) 95 05/10/17 02:00 74 05/10/17 01:00 74 05/10/17 00:00 77 05/09/17 23:00 98.4 84 18 156/77 (103) 95 05/09/17 23:00 80 05/09/17 22:00 74 05/09/17 21:00 79 05/09/17 20:00 86 05/09/17 19:00 98.4 86 18 147/72 (97) 96 05/09/17 19:00 85 05/09/17 18:00 77 05/09/17 17:00 77 05/09/17 16:00 76 05/09/17 15:00 98.6 73 16 124/65 (84) 95 05/09/17 15:00 71 05/09/17 14:00 75 05/09/17 13:00 76 05/09/17 12:00 77 05/09/17 11:00 98.3 75 16 115/66 (82) 96 05/09/17 11:00 75 Result Diagram: 05/06/17 04505/06/17450 Cardiovascular: RRR Telemetry: NSR Pulmonary: CTA GI/: NABS Incision: dry and intact CT: small air leak Plan: Continue chest tube CXR in AM Morphine for breakthrough pain Discharge planning (1) COPD (chronic obstructive pulmonary disease) Plan: nebs, ezpap on room air (2) Coronary artery disease Plan: SA, statin , home meds (3) Hypertension Plan: controlled (4) Diabetes mellitus Plan: insulin sliding scale, diabetic diet (5) Primary cancer of left upper lobe of lung (6) Left Posterolateral Muscle Sparing Thoracotomy, Left Upper Lobectomy Plan: pain control, path discussed with pt + air leak leave chest tube in Sangeeta Torrez MD May 10, 2017 10:11
[2017-05-10] MEDS: MORPHINE SULFATE 2 MG/ML INJ IM PRN ×3 (13:24→22:22)
[2017-05-10] MEDS: MAGNESIUM HYDROXIDE SUSP 30 ML CUP PO PRN (14:44)
[2017-05-10] MEDS: LOSARTAN 25 MG TAB PO SCH (20:31)
[2017-05-10] MEDS: PANTOPRAZOLE SOD 40 MG DELAYED RELEASE TAB PO SCH (20:31)
[2017-05-10] MEDS: DOCUSATE CALCIUM 240 MG CAP PO SCH (20:31)
[2017-05-11] VITALS (27 sets, daily range): BP systolic 137–150; BP diastolic 62–76; PULSE 67–81; RESP 16–19; TEMP 97.9–98.6; O2SAT 95–96
[2017-05-11] MEDS: MORPHINE SULFATE 2 MG/ML INJ IM PRN ×2 (02:05→06:50)
--- NOTE | 2017-05-11 06:30 | RADRPT ---
EXAM DATE/TIME: 05/11/2017 05:27 [facility] COMPARISON: CHEST SINGLE AP, May 07, 2017, 4:14. INDICATIONS : Shortness of breath, possible pulmonary disease. MEDICAL HISTORY : None. SURGICAL HISTORY : Thoracotomy ENCOUNTER: Subsequent ACUITY: 4 - 6 days PAIN SCORE: 4/10 LOCATION: Left chest FINDINGS: A single view of the chest demonstrates left basilar pleural-parenchymal density. Left-sided chest tu be without pneumothorax. Minimal subcutaneous emphysema in the left. The cardiomediastinal contours are unremarkable. Osseous structures are intact. CONCLUSION: 1. Left basilar pleural-parenchymal density, stable. 2. No pneumothorax. Jensen Ortega MD on May 11, 2017 at 6:27 Board Certified Radiologist. This report was verified electronically.
[2017-05-11] MEDS: SODIUM CHLORIDE 0.9% FLUSH 5 ML FLUSH IV FLUSH SCH ×2 (09:00→21:00)
[2017-05-11] MEDS: GABAPENTIN 300 MG CAP PO SCH (09:19)
[2017-05-11] MEDS: CARVEDILOL 3.125 MG TAB PO SCH ×2 (09:19→21:02)
[2017-05-11] MEDS: LOSARTAN 50 MG TAB PO SCH (09:19)
[2017-05-11] MEDS: ACETAMINOPHEN/HYDROcodone 325 MG/5 MG TAB PO PRN ×6 (09:19→23:49)
[2017-05-11] MEDS: ASPIRIN EC 81 MG TABEC PO SCH (09:19)
[2017-05-11] MEDS: BUDESONIDE-FORMOTEROL 160/4.5 MCG INHALER INH SCH ×2 (09:20→21:00)
--- NOTE | 2017-05-11 10:26 | PD.CAR.PN ---
CVT Progress Note Subjective/Hospital Course: 82/ male hx of left upper lobe lung cancer / 10x8 spiculated mass / elective surgery PMH: COPD, DM, HTN, CAD/ stent surgery : Left Posterolateral Muscle Sparing Thoracotomy, Left Upper Lobectomy , Mediastinal Lymph Node Dissection 05/05 05/06 on nasal cannula await path pulm toileting OOB/ ambulate chest tube + air leak 140cc/ 12 hr s. 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 pT1a pNO 05/09 Doing well Small air-leak with valsalva Maintain CT and re-evaluate for removal in am 05/10 c/o incisional pain last night small air leak from chest tube 05/11 still has intermittent air leak cxr no PTX will eval for possible placement for pneumostat Objective: Vital Signs Date Time Temp Pulse Resp B/P (MAP) Pulse Ox O2 Delivery O2 Flow Rate FiO2 05/11/17 07:30 98.6 77 16 137/67 (90) 95 05/11/17 06:00 75 05/11/17 05:00 74 05/11/17 04:00 76 05/11/17 03:00 98.3 79 18 148/76 (100) 95 05/11/17 03:00 74 05/11/17 02:00 80 05/11/17 01:00 75 05/11/17 00:00 72 05/10/17 23:00 98.1 76 18 144/75 (98) 95 05/10/17 23:00 73 05/10/17 22:00 75 05/10/17 21:00 90 05/10/17 20:00 80 05/10/17 19:00 92 05/10/17 19:00 98.0 85 18 154/76 (102) 95 05/10/17 18:33 18 05/10/17 18:00 90 05/10/17 17:00 90 05/10/17 16:00 89 05/10/17 15:00 97.9 86 18 125/68 (87) 95 05/10/17 15:00 87 05/10/17 14:00 87 05/10/17 13:29 18 05/10/17 13:00 75 05/10/17 12:00 78 05/10/17 11:00 97.7 69 18 160/81 (107) 97 05/10/17 11:00 69 (1) COPD (chronic obstructive pulmonary disease) Plan: nebs, ezpap on room air (2) Coronary artery disease Plan: SA, statin , home meds (3) Hypertension Plan: controlled (4) Diabetes mellitus Plan: insulin sliding scale, diabetic diet (5) Primary cancer of left upper lobe of lung (6) Left Posterolateral Muscle Sparing Thoracotomy, Left Upper Lobectomy Plan: pain control, path discussed with pt + air leak leave chest tube in may need pneumostat Jewell Jennings May 11, 2017 10:26
[2017-05-11] MEDS: DOCUSATE CALCIUM 240 MG CAP PO SCH (21:01)
[2017-05-11] MEDS: PANTOPRAZOLE SOD 40 MG DELAYED RELEASE TAB PO SCH (21:02)
[2017-05-11] MEDS: LOSARTAN 25 MG TAB PO SCH (21:02)
[2017-05-12] VITALS (9 sets, daily range): BP systolic 159–163; BP diastolic 75–80; PULSE 64–72; RESP 18–20; TEMP 97.6–98.2; O2SAT 96–97
[2017-05-12] MEDS: ACETAMINOPHEN/HYDROcodone 325 MG/5 MG TAB PO PRN (03:44)
[2017-05-12 05:36] LABS: BICARBONATE 25.5 MEQ/L (21.0-32.0); MAGNESIUM 2.1 MG/DL (1.5-2.5); POTASSIUM 4.4 MEQ/L (3.5-5.1)
[2017-05-12] MEDS: MORPHINE SULFATE 2 MG/ML INJ IM PRN (06:18)
--- NOTE | 2017-05-12 06:52 | RADRPT ---
EXAM DATE/TIME: 05/12/2017 04:43 [place] COMPARISON: CHEST SINGLE AP, May 11, 2017, 5:27. INDICATIONS : Short of breath. MEDICAL HISTORY : None. SURGICAL HISTORY : Thoracotomy. ENCOUNTER: Subsequent ACUITY: 4 - 6 days PAIN SCORE: 0/10 LOCATION: Bilateral chest FINDINGS: A single view of the chest demonstrates cardiomegaly and left basilar pleural-parenchymal density. Le ft-sided chest tube without left apical pneumothorax. Right lung clear. Osseous structures are intac t. CONCLUSION: 1. Slight worsening left basilar pleural-parenchymal density. 2. No definite pneumothorax. Jensen Ortega MD on May 12, 2017 at 6:48 Board Certified Radiologist. This report was verified electronically.
[2017-05-12] MEDS: ASPIRIN EC 81 MG TABEC PO SCH (09:40)
[2017-05-12] MEDS: SODIUM CHLORIDE 0.9% FLUSH 5 ML FLUSH IV FLUSH SCH (09:40)
[2017-05-12] MEDS: LOSARTAN 50 MG TAB PO SCH (09:41)
[2017-05-12] MEDS: GABAPENTIN 300 MG CAP PO SCH (09:41)
[2017-05-12] MEDS: CARVEDILOL 3.125 MG TAB PO SCH (09:41)
[2017-05-12] MEDS: oxyCODONE/ACETAMINOPHEN 10 MG/325 MG TAB PO PRN ×2 (10:31→14:09)
[2017-05-12] MEDS ORDERED: DOCU2.5C PO (11:08)
[2017-05-12] MEDS ORDERED: OXYC1TAB36 PO (11:08)
--- NOTE | 2017-05-12 16:57 | HHI.DS ---
Discharge Summary Admission Date May 05, 2017 at 05:28 Discharge Date: May 12, 2017 Admitting Diagnosis lung mass / left upper lobe cancer (1) COPD (chronic obstructive pulmonary disease) Diagnosis: Principal ICD Codes: J44.9 - Chronic obstructive pulmonary disease, unspecified Status: Chronic (2) Coronary artery disease Diagnosis: Principal ICD Codes: I25.10 - Atherosclerotic heart disease of [place]ht[place] coronary artery without angina pectoris Status: Chronic (3) Diabetes mellitus Diagnosis: Principal ICD Codes: E11.9 - Type 2 diabetes mellitus without complications Status: Chronic (4) Hypertension Diagnosis: Principal ICD Codes: I10 - Essential (primary) hypertension Status: Chronic (5) Primary cancer of left upper lobe of lung Diagnosis: Principal ICD Codes: C34.12 - Malignant neoplasm of upper lobe, left bronchus or lung Status: Chronic (6) Left Posterolateral Muscle Sparing Thoracotomy, Left Upper Lobectomy Diagnosis: Secondary Procedures 1. Left Posterolateral Muscle Sparing Thoracotomy 05/05 2. Left Upper Lobectomy 3. Mediastinal Lymph Node Dissection 4. Intercostal Nerve Block Brief History 82/ male hx of left upper lobe lung cancer / 10x8 spiculated mass / elective surgery PMH: COPD, DM, HTN, CAD/ stent CBC/BMP: 05/12/17 0450 Significant Findings Laboratory Tests Test 05/12/17 04:50 Blood Urea Nitrogen 23 MG/DL (7-18) Random Glucose 147 MG/DL (74-106) Calcium Level 8.4 MG/DL (8.5-10.1) Sodium Level 130 MEQ/L (136-145) Estimat Glomerular Filtration Rate 84 ML/MIN (>89) Imaging Last Impressions Chest X-Ray 05/12/17 0600 Signed Impressions: Service Date/Time: Friday, May 12, 2017 04:43 - CONCLUSION: 1. Slight worsening left basilar pleural-parenchymal density. 2. No definite pneumothorax. Jensen Ortega MD PE at Discharge GENERAL: SKIN: Warm and dry. incision intact and well approximated to left lateral chest wall HEAD: Normocephalic. EYES: No scleral icterus. No injection or drainage. NECK: Supple, trachea midline. No JVD or lymphadenopathy. CARDIOVASCULAR: Regular rate and rhythm without murmurs, gallops, or rubs. RESPIRATORY: Breath sounds equal bilaterally. No accessory muscle use. diminished left lower lobe , pneumostat chest tube in place, with some serous drainage GASTROINTESTINAL: Abdomen soft, non-tender, nondistended. MUSCULOSKELETAL: No cyanosis, or edema. BACK: Nontender without obvious deformity. No CVA tenderness. Hospital Course 05/06 on nasal cannula await path pulm toileting OOB/ ambulate chest tube + air leak 140cc/ 12 hr s. 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 pT1a pNO 05/09 Doing well Small air-leak with valsalva Maintain CT and re-evaluate for removal in am 05/10 c/o incisional pain last night small air leak from chest tube 05/11 still has intermittent air leak cxr no PTX will eval for possible placement for pneumostat 05/12 cxr noted, no PTX pneumostat in place will dc with f/u visit in 2 weeks / cxr prior meli f/u with Dr Contreras Pt Condition on Discharge: Good Discharge Disposition: Disch w/ Home Health Serv Discharge Instructions DIET: Follow Instructions for: Diabetic Diet Activities you can perform: Full Weight Bearing, Shower Only-No Bath Activities to avoid: Strenuous Activity, Driving Additional Activity Instructio: no lifting > 8 lbs or gallon of milk Follow up Referrals: PCP Follow-up with Christina Gruber Do Pulmonology with May Dobbs MD Surgical - 2 Weeks with Canelo Contreras MD New Orders: X-RAY CHEST PA & LAT - 2 Weeks New Medications: Docusate Calcium (Sm Stool Softener) 240 Mg Cap 240 MG PO HS for Constipation, #30 CAP 2 Refills Oxycodone-Acetaminophen (Oxycodone-Acetaminophen) 10-325 mg Tab 1 TAB PO Q4H PRN for PAIN SCALE 5 TO 10, #40 TAB 0 Refills Continued Medications: Aspirin DR (Aspirin DR) 81 Mg Tabdr 81 MG PO DIRECTED, TAB 0 Refills PT TAKES 3 TIMES A WEEK Budesonide-Formoterol Inh (Symbicort Inh) 160-4.5 Mcg/Act Aero 2 PUFF INH Q12HR, #1 INHALER 0 Refills Carvedilol (Carvedilol) 3.125 Mg Tab 3.125 MG PO BID, #60 TAB 0 Refills Gabapentin (Gabapentin) 300 Mg Cap 300 MG PO DAILY, #60 CAP 0 Refills Losartan (Losartan) 50 Mg Tab 50 MG PO DAILY for Blood Pressure Management, #30 TAB 0 Refills [place]-3 Fatty Acids ([place] 3 1000 mg) 300 Mg-1,000 Mg Cap 1 TAB PO DAILY Red Yeast Rice Extract (Red Yeast Rice) 600 Mg Cap 600 MG PO DAILY Jewell Jennings May 12, 2017 16:57
== END 2017-05-12 14:12 | disposition home health service (06) | DRG 164 ==
LOC: HSDI 05-05 05:28 → HCPC 05-05 18:46
PROVIDERS: ADMIT Thoracic Surgery (Cardiothoracic Vascular Surgery); ATTEND Thoracic Surgery (Cardiothoracic Vascular Surgery)
PROC: 07B70ZX Excision of Thorax Lymphatic, Open Approach, Diagnostic (ICD-10-PCS; 2017-05-05)
PROC: 3E0T3BZ Introduction of Anesthetic Agent into Peripheral Nerves and Plexi, Percutaneous Approach (ICD-10-PCS; 2017-05-05)
PROC: 0BTG0ZZ Resection of Left Upper Lung Lobe, Open Approach (ICD-10-PCS; principal; 2017-05-05 07:24)
DX: C34.12 Malignant neoplasm of upper lobe, left bronchus or lung (principal); J95.812 Postprocedural air leak; J44.9 Chronic obstructive pulmonary disease, unspecified; E11.9 Type 2 diabetes mellitus without complications; I10 Essential (primary) hypertension; I25.10 Atherosclerotic heart disease of native coronary artery without angina pectoris; Z95.5 Presence of coronary angioplasty implant and graft; Z23 Encounter for immunization; Z86.14 Personal history of Methicillin resistant Staphylococcus aureus infection; Z87.891 Personal history of nicotine dependence; Y83.8 Other surgical procedures as the cause of abnormal reaction of the patient, or of later complication, without mention of misadventure at the time of the procedure
CPT/HCPCS: 71010; 80048; 83735; 84100; 85025; 86850; 86900; 86901; 88307; 88309; 88311; 88331; 88341; 88342; 90686; 94150; 94640; 94664; C9290; J0131; J0690; J1100; J1885; J2270; J2370; J2405; J2710; J3010; J7120; J7613; Q2038